=== PATIENT | male | born 1955 | race Caucasian/White ===

== ENCOUNTER 2020-07-28 08:46 | Emergency (ER) | payer OTHER ==
[2020-07-28] MEDS ORDERED: Sodium Chloride 0.9% 10 ML Syringe FLUSH PRN (09:23)
--- NOTE | 2020-07-28 11:15 | EDM.PDOC ---
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 He is a [place] patient, was diagnosed with COVID 5 days ago. He is 02 dependent, and usually his sat run mid 90's on 2-3 Lit/NC, but over the last 2 days he reports his sat has been in low 90's to mid 80's sometimes. He didn't seek any help over the weekend -- but he called the [place] hospital today and was told to come to the ER. Reports chills for 2 days. No CP or palpitation.. He sees a physiotherapy practice manager in [facility]. On daily prednisone 10mg PO per patient's reports Reports that his SOB is so severe that he cannot move from bed to the bathroom without running out of breath - Related Data Allergies Allergy/AdvReac Type Severity Reaction Status Date / Time hydrocodone AdvReac Stomach Verified 05/06/16 12:17 Upset Home Meds: Home Meds Aspirin [Children's Aspirin] 81 mg PO DAILY 05/27/13 [History] Metoprolol Succinate 50 mg PO DAILY 05/27/13 [History] Rosuvastatin Calcium [Crestor] 10 mg PO ASDIRECTED 05/27/13 [History] hydroCHLOROthiazide [Hydrochlorothiazide] 12.5 mg PO DAILY 05/27/13 [History] Lisinopril 10 mg PO DAILY 01/15/16 [History] Past Medical History HEENT History: Reports: Impaired Vision Cardiovascular History: Reports: Hypertension, Pulmonary Hypertension, SOB on Exertion Respiratory History: Reports: Interstitial Lung Disease Gastrointestinal History: Reports: Colon Polyp Musculoskeletal History: Reports: Other (See Below) Other Musculoskeletal History: broke knee 2014, cut tendons on Left hand Hematologic History: Reports: Blood Transfusion(s) - Past Surgical History Cardiovascular Surgical History: Reports: AAA Repair Social & Family History - Caffeine Use Caffeine Use: Reports: Coffee ED ROS GENERAL - Review of Systems Review Of Systems: See Below Constitutional: Reports: Malaise, Fatigue Respiratory: Reports: Shortness of Breath Cardiovascular: Reports: Dyspnea on Exertion GI/Abdominal: Reports: No Symptoms Musculoskeletal: Reports: No Symptoms Skin: Reports: Cyanosis Neurological: Reports: No Symptoms ED EXAM, GENERAL - Physical Exam Exam: See Below Exam Limited By: Respiratory Distress General Appearance: Alert, WD/WN, Mild Distress Eye Exam: Bilateral Eye: EOMI, PERRL Respiratory/Chest: Respiratory Distress, Decreased Breath Sounds, Crackles ( b/l diffuse) Cardiovascular: Normal Peripheral Pulses, Regular Rate, Rhythm Neurological: Alert, Oriented, No Motor/Sensory Deficits Skin Exam: Dry, Cyanosis #1 Interpretation EKG Date: 07/28/20 Rhythm: NSR [place]: Normal P-Wave: Present QRS: Normal ST-T: Normal QT: Normal Course - Vital Signs Last Recorded V/S: Last Vital Signs Temp 36.4 C 07/28/20 10:50 Pulse 61 07/28/20 10:50 Resp 24 H 07/28/20 10:50 BP 112/92 H 07/28/20 10:50 Pulse Ox 84 L 07/28/20 10:50 - Orders/Labs/Meds Orders: Active Orders 24 hr Category Date Time Status EKG Documentation Completion [RC] ASDIRECTED Care 07/28/20 09:23 Active RT Aerosol Therapy [RC] ASDIRECTED Care 07/28/20 13:15 Active RT Aerosol Therapy [RC] ASDIRECTED Care 07/28/20 13:27 Active RT Aerosol Therapy [RC] ASDIRECTED Care 07/28/20 13:28 Active CULTURE BLOOD [BC] Routine Lab 07/28/20 12:00 Received CULTURE BLOOD [BC] Stat Lab 07/28/20 11:28 Received Albuterol [Proventil Neb Soln] Med 07/28/20 13:32 Active 2.5 mg INH Q2H PRN Heparin Sodium/D5W [Heparin 25,000 Units in D5W 500 ML] Med 07/28/20 12:00 Active 25,000 units in 500 ml IV TITRATE Sodium Chloride 0.9% [Normal Saline] 1,000 ml Med 07/28/20 12:00 Active IV ASDIRECTED Sodium Chloride 0.9% [Saline Flush] Med 07/28/20 09:23 Active 10 ml FLUSH ASDIRECTED PRN Saline Lock Insert [OM.PC] Routine Oth 07/28/20 09:23 Ordered Medication Orders Albuterol (Albuterol 0.083% 2.5 Mg/3 Ml Neb Soln) 2.5 mg INH Q2H PRN PRN Reason: Shortness of Breath Last Admin: 07/28/20 11:55 Dose: 2.5 mg Documented by: KRIS Sodium Chloride (Normal Saline) 1,000 mls @ 999 mls/hr IV ASDIRECTED PATRICK Last Admin: 07/28/20 11:45 Dose: 999 mls/hr Documented by: KRIS Heparin Sodium/Dextrose (Heparin 25,000 Units In D5w 500 Ml) 25,000 units in 500 mls @ 23.732 mls/hr IV TITRATE PATRICK; Protocol Last Admin: 07/28/20 13:00 Dose: 12 units/kg/hr, 23.732 mls/hr Documented by: KRIS Cosigned by: SUSIE Sodium Chloride (Sodium Chloride 0.9% 10 Ml Syringe) 10 ml FLUSH ASDIRECTED PRN PRN Reason: Keep Vein Open Last Admin: 07/28/20 11:00 Dose: 10 ml Documented by: KRIS Labs: Laboratory Tests 07/28/20 07/28/20 07/28/20 Range/Units 10:30 10:30 11:03 WBC (4.0-11.0) K/uL RBC (4.50-6.50) M/uL Hgb (13.0-18.0) g/dL Hct (40.0-54.0) % MCV (76-96) fL MCH (27.0-32.0) pg MCHC (31.0-35.0) g/dL RDW (11.0-16.0) % Plt Count (150-400) K/uL MPV (6.0-10.0) fL Neut % (Auto) (45.0-70.0) % Lymph % (Auto) (20.0-40.0) % [place] % (Auto) (3.0-10.0) % Eos % (Auto) (1.0-5.0) % Baso % (Auto) (0.0-0.5) % Neut # (Auto) (2.00-7.50) K/uL Lymph # (Auto) (1.50-4.00) K/uL [place] # (Auto) (0.20-0.80) K/uL Eos # (Auto) (0.04-0.40) K/uL Baso # (Auto) (0.02-0.10) K/uL ESR (0-20) mm/hr D-Dimer, Quantitative 2590 H (0-400) ng/mL ABG pH (7.35-7.45) ABG pCO2 (35-45) mmHg ABG pO2 (80-105) mmHg ABG HCO3 (22-26) mmol/L ABG O2 Saturation (95-98) % ABG Base Excess (-2-2) O2 Delivery Device Sodium 133 L (136-145) mmol/L Potassium 5.6 H D (3.5-5.1) mmol/L Chloride 97 L (98-107) mmol/L Carbon Dioxide 20.4 L D (21.0-32.0) mmol/L Anion Gap 21.2 H (5.0-15.0) mmol/L BUN 88 H* D (8-26) mg/dL Creatinine 3.72 H* D (0.70-1.30) mg/dL Est Cr Clr Drug Dosing TNP Estimated GFR (MDRD) 16 L (>60) MLS/MIN BUN/Creatinine Ratio 23.7 (6-25) Glucose 120 H (74-100) mg/dL Lactic Acid (0.4-2.0) mmol/L Calcium 8.3 L (8.5-10.1) mg/dL Total Bilirubin 0.5 (0.0-1.0) mg/dL AST 40 H (15-37) U/L ALT 20 (12-78) U/L Alkaline Phosphatase 49 (46-116) U/L Troponin I 0.030 (0.000-0.060) ng/mL C-Reactive Protein 19.1 H (0.0-3.0) mg/L B-Natriuretic Peptide 78 D (0-125) pg/mL Total Protein 7.1 (6.4-8.2) g/dL Albumin 3.1 L (3.4-5.0) g/dL Globulin 4.0 (2.2-4.2) g/dL Albumin/Globulin Ratio 0.8 (0.8-2.0) 07/28/20 07/28/20 07/28/20 Range/Units 11:10 11:43 12:00 WBC 7.3 D (4.0-11.0) K/uL RBC 5.15 (4.50-6.50) M/uL Hgb 15.8 (13.0-18.0) g/dL Hct 47.7 (40.0-54.0) % MCV 93 (76-96) fL MCH 30.7 (27.0-32.0) pg MCHC 33.1 (31.0-35.0) g/dL RDW 15.6 (11.0-16.0) % Plt Count 116 L D (150-400) K/uL MPV 13.1 H (6.0-10.0) fL Neut % (Auto) 84.0 H (45.0-70.0) % Lymph % (Auto) 5.8 L (20.0-40.0) % [place] % (Auto) 10.1 H (3.0-10.0) % Eos % (Auto) 0.0 L (1.0-5.0) % Baso % (Auto) 0.1 (0.0-0.5) % Neut # (Auto) 6.13 (2.00-7.50) K/uL Lymph # (Auto) 0.42 L (1.50-4.00) K/uL [place] # (Auto) 0.74 (0.20-0.80) K/uL Eos # (Auto) 0.00 L (0.04-0.40) K/uL Baso # (Auto) 0.01 L (0.02-0.10) K/uL ESR 8 (0-20) mm/hr D-Dimer, Quantitative (0-400) ng/mL ABG pH 7.37 (7.35-7.45) ABG pCO2 30.3 L (35-45) mmHg ABG pO2 53.9 L* (80-105) mmHg ABG HCO3 17.5 L (22-26) mmol/L ABG O2 Saturation 87.2 L (95-98) % ABG Base Excess -7.8 L (-2-2) O2 Delivery Device Non rebr mask Sodium (136-145) mmol/L Potassium (3.5-5.1) mmol/L Chloride (98-107) mmol/L Carbon Dioxide (21.0-32.0) mmol/L Anion Gap (5.0-15.0) mmol/L BUN (8-26) mg/dL Creatinine (0.70-1.30) mg/dL Est Cr Clr Drug Dosing Estimated GFR (MDRD) (>60) MLS/MIN BUN/Creatinine Ratio (6-25) Glucose (74-100) mg/dL Lactic Acid (0.4-2.0) mmol/L Calcium (8.5-10.1) mg/dL Total Bilirubin (0.0-1.0) mg/dL AST (15-37) U/L ALT (12-78) U/L Alkaline Phosphatase (46-116) U/L Troponin I (0.000-0.060) ng/mL C-Reactive Protein (0.0-3.0) mg/L B-Natriuretic Peptide (0-125) pg/mL Total Protein (6.4-8.2) g/dL Albumin (3.4-5.0) g/dL Globulin (2.2-4.2) g/dL Albumin/Globulin Ratio (0.8-2.0) 07/28/20 Range/Units 12:00 WBC (4.0-11.0) K/uL RBC (4.50-6.50) M/uL Hgb (13.0-18.0) g/dL Hct (40.0-54.0) % MCV (76-96) fL MCH (27.0-32.0) pg MCHC (31.0-35.0) g/dL RDW (11.0-16.0) % Plt Count (150-400) K/uL MPV (6.0-10.0) fL Neut % (Auto) (45.0-70.0) % Lymph % (Auto) (20.0-40.0) % [place] % (Auto) (3.0-10.0) % Eos % (Auto) (1.0-5.0) % Baso % (Auto) (0.0-0.5) % Neut # (Auto) (2.00-7.50) K/uL Lymph # (Auto) (1.50-4.00) K/uL [place] # (Auto) (0.20-0.80) K/uL Eos # (Auto) (0.04-0.40) K/uL Baso # (Auto) (0.02-0.10) K/uL ESR (0-20) mm/hr D-Dimer, Quantitative (0-400) ng/mL ABG pH (7.35-7.45) ABG pCO2 (35-45) mmHg ABG pO2 (80-105) mmHg ABG HCO3 (22-26) mmol/L ABG O2 Saturation (95-98) % ABG Base Excess (-2-2) O2 Delivery Device Sodium (136-145) mmol/L Potassium (3.5-5.1) mmol/L Chloride (98-107) mmol/L Carbon Dioxide (21.0-32.0) mmol/L Anion Gap (5.0-15.0) mmol/L BUN (8-26) mg/dL Creatinine (0.70-1.30) mg/dL Est Cr Clr Drug Dosing Estimated GFR (MDRD) (>60) MLS/MIN BUN/Creatinine Ratio (6-25) Glucose (74-100) mg/dL Lactic Acid 2.5 H (0.4-2.0) mmol/L Calcium (8.5-10.1) mg/dL Total Bilirubin (0.0-1.0) mg/dL AST (15-37) U/L ALT (12-78) U/L Alkaline Phosphatase (46-116) U/L Troponin I (0.000-0.060) ng/mL C-Reactive Protein (0.0-3.0) mg/L B-Natriuretic Peptide (0-125) pg/mL Total Protein (6.4-8.2) g/dL Albumin (3.4-5.0) g/dL Globulin (2.2-4.2) g/dL Albumin/Globulin Ratio (0.8-2.0) Meds: Medications Generic Name Dose Route Start Last Admin Trade Name Freq PRN Reason Stop Dose Admin Albuterol 2.5 mg 07/28/20 13:32 07/28/20 11:55 Albuterol 0.083% 2.5 Mg/3 Ml Neb Soln INH 2.5 mg Q2H PRN Administration Shortness of Breath Sodium Chloride 1,000 mls @ 999 mls/hr 04/06/21 12:00 07/28/20 11:45 Normal Saline IV 999 mls/hr ASDIRECTED PATRICK Administration Heparin Sodium/Dextrose 25,000 units in 500 mls @ 23.732 mls/hr 07/28/20 12:00 07/28/20 13:00 Heparin 25,000 Units In D5w 500 Ml IV 12 units/kg/hr TITRATE PATRICK 23.732 mls/hr Administration Protocol 12 UNITS/KG/HR Sodium Chloride 10 ml 07/28/20 09:23 07/28/20 11:00 Sodium Chloride 0.9% 10 Ml Syringe FLUSH 10 ml ASDIRECTED PRN Administration Keep Vein Open Discontinued Medications Generic Name Dose Route Start Last Admin Trade Name Freq PRN Reason Stop Dose Admin Albuterol 2.5 mg 07/28/20 13:14 07/28/20 13:23 Albuterol 0.083% 2.5 Mg/3 Ml Neb Soln NEB 07/28/20 13:15 2.5 mg ONETIME ONE Administration Albuterol 0.63 mg 07/28/20 13:26 07/28/20 11:55 Albuterol 0.021% 0.63 Mg/3 Ml Neb Soln NEB 0.63 mg Q2H PRN Administration Shortness of Breath Albuterol/Ipratropium 3 ml 07/28/20 12:00 07/28/20 13:35 Albuterol/Ipratropium 3.0-0.5 Mg/3 Ml Neb Soln NEB 07/28/20 12:01 3 ml ONETIME ONE Administration Heparin Sodium (Porcine) 4,000 units 07/28/20 13:48 07/28/20 13:49 Heparin Sodium 5,000 Units/0.5 Ml Syringe IVPUSH 07/28/20 13:49 4,000 units .BOLUS ONE Administration Vancomycin HCl 500 mg/ Sodium 100 mls @ 100 mls/hr 07/28/20 12:09 07/28/20 12:43 Chloride IV 07/28/20 12:10 100 mls/hr ONETIME ONE Administration Levofloxacin/Dextrose 500 mg/ 200 mls @ 100 mls/hr 07/28/20 12:10 07/28/20 13:56 Levofloxacin/Dextrose IV 07/28/20 14:09 100 mls/hr ONETIME ONE Administration Sodium Chloride 1,000 mls @ 999 mls/hr 07/28/20 13:14 07/28/20 13:00 Normal Saline IV 07/28/20 14:14 999 mls/hr .BOLUS ONE Administration Methylprednisolone Sodium Succinate 40 mg 07/28/20 11:02 07/28/20 12:12 Methylprednisolone Sodium Succinate 40 Mg/1 Ml Sdv IVPUSH 07/28/20 11:03 40 mg ONETIME ONE Administration Methylprednisolone Sodium Succinate Confirm 07/28/20 13:38 07/28/20 14:00 Methylprednisolone Sodium Succinate 40 Mg/1 Ml Sdv Administered 07/28/20 13:39 Not Given Dose 40 mg .ROUTE .[facility] - Re-Assessments/Exams Free Text/Narrative Re-Assessment/Exam: upon arrival to the ER O2 was in low 80'S, BP 72/55, HR 75 and RR 20, Temp 37.2 EKG - NSR, no arrhythmias or ischemic changes CXR - b/l ground glass opacities. labs showed worsening of kidney function and elevated ddimer unable to perform CT with contrast to rule out PE due to elevation in Cr and BUN - heparin was started with a bolus then a drip Respiratory status has improved after multiple nebs treatment with albuterol and DuoNeb. On 8 lit by NR. Initial hypotension - improved with Hydration 2 lit NS were given. Also concerns for adrenal insufficiency due to chronic steroids use - IV solumedrol was given. Patient reports significant improvement in his symptoms - able to breath better and more energetic. vitals still show O2 92-93% on 8 lit NC,, also BP 85/68. Alert, oriented, talking in full sentences and using his phone. Blood Cx x2 IV levaquin and Vancomycin were started as well. Called [facility] - who reported that given the complexity and acuity of the p atient's condition - they recommended to transfer the patient to another higher level of care facility. Spoke with [facility] - Didn't accept the patient. Called [facility] - who agreed to accept the patient to their ICU. Patient to be transported by air ambulance due the critical nature of his condition and long distance Departure - Departure Time of Disposition: 15:41 Disposition: DC/Tfer to Acute Hospital 02 Condition: Fair Clinical Impression: Hypoxemia, Pneumonia due to COVID-19 virus, Elevated d-dimer, Acute kidney injury due to COVID-19, Sepsis associated hypotension, Dehydration, Acute respiratory failure due to COVID-19 Pneumonia Qualifiers: Pneumonia type: due to unspecified organism Laterality: bilateral Lung location: unspecified part of lung Qualified Code(s): J18.9 - Pneumonia, unspecified organism Hypotension Qualifiers: Hypotension type: unspecified hypotension type Qualified Code(s): I95.9 - Hypotension, unspecified - Discharge Information *PRESCRIPTION DRUG MONITORING PROGRAM REVIEWED*: Not Applicable *COPY OF PRESCRIPTION DRUG MONITORING REPORT IN PATIENT MICHAEL: Not Applicable Referrals: PCP,None [Primary Care Provider] - Sepsis Event Note (ED) - Focused Exam Vital Signs: Vital Signs Temp Pulse Resp BP Pulse Ox 07/28/20 10:50 36.4 C 61 24 H 112/92 H 84 L - Problem List & Annotations (1) Acute kidney injury due to COVID-19 SNOMED Code(s): 320281758 Code(s): U07.1 - COVID-19; N17.9 - ACUTE KIDNEY FAILURE, UNSPECIFIED Status: Acute Priority: High Current Visit: Yes (2) Acute respiratory failure due to COVID-19 SNOMED Code(s): 117020967 Code(s): U07.1 - COVID-19; J96.00 - ACUTE RESPIRATORY FAILURE, UNSP W HYPOXIA OR HYPERCAPNIA Status: Acute Priority: High Current Visit: Yes (3) Dehydration SNOMED Code(s): 48713480 Code(s): E86.0 - DEHYDRATION Status: Acute Priority: Medium Current Visit: Yes (4) Elevated d-dimer SNOMED Code(s): 801278841 Code(s): R79.89 - OTHER SPECIFIED ABNORMAL FINDINGS OF BLOOD CHEMISTRY Status: Acute Priority: Medium Current Visit: Yes (5) Hypotension SNOMED Code(s): 75643916 Code(s): I95.9 - HYPOTENSION, UNSPECIFIED Status: Acute Priority: High Current Visit: Yes Qualifiers: Hypotension type: unspecified hypotension type Qualified Code(s): I95.9 - Hypotension, unspecified (6) Hypoxemia SNOMED Code(s): 179885294 Code(s): R09.02 - HYPOXEMIA Status: Acute Priority: High Current Visit: Yes (7) Pneumonia SNOMED Code(s): 261895572 Code(s): J18.9 - PNEUMONIA, UNSPECIFIED ORGANISM Status: Acute Priority: High Current Visit: Yes Qualifiers: Pneumonia type: due to unspecified organism Laterality: bilateral Lung location: unspecified part of lung Qualified Code(s): J18.9 - Pneumonia, unspecified organism (8) Pneumonia due to COVID-19 virus SNOMED Code(s): 622414730875420759 Code(s): U07.1 - COVID-19; J12.82 - PNEUMONIA DUE TO CORONAVIRUS DISEASE 2019 Status: Acute Priority: High Current Visit: Yes (9) Sepsis associated hypotension SNOMED Code(s): 04578249 Code(s): A41.9 - SEPSIS, UNSPECIFIED ORGANISM; I95.9 - HYPOTENSION, UNSPECIFIED Status: Acute Priority: High Current Visit: Yes - Problem List Review Problem List Initiated/Reviewed/Updated: Yes - My Orders Last 24 Hours: My Active Orders 07/28/20 09:23 EKG Documentation Completion [RC] ASDIRECTED Sodium Chloride 0.9% [Saline Flush] 10 ml FLUSH ASDIRECTED PRN Saline Lock Insert [OM.PC] Routine 07/28/20 11:28 CULTURE BLOOD [BC] Stat 07/28/20 12:00 CULTURE BLOOD [BC] Routine Heparin Sodium/D5W [Heparin 25,000 Units in D5W 500 ML] 25,000 units in 500 ml IV TITRATE Sodium Chloride 0.9% [Normal Saline] 1,000 ml IV ASDIRECTED 07/28/20 13:15 RT Aerosol Therapy [RC] ASDIRECTED 07/28/20 13:27 RT Aerosol Therapy [RC] ASDIRECTED 07/28/20 13:28 RT Aerosol Therapy [RC] ASDIRECTED 07/28/20 13:32 Albuterol [Proventil Neb Soln] 2.5 mg INH Q2H PRN - Assessment/Plan Last 24 Hours: My Active Orders 07/28/20 09:23 EKG Documentation Completion [RC] ASDIRECTED Sodium Chloride 0.9% [Saline Flush] 10 ml FLUSH ASDIRECTED PRN Saline Lock Insert [OM.PC] Routine 07/28/20 11:28 CULTURE BLOOD [BC] Stat 07/28/20 12:00 CULTURE BLOOD [BC] Routine Heparin Sodium/D5W [Heparin 25,000 Units in D5W 500 ML] 25,000 units in 500 ml IV TITRATE Sodium Chloride 0.9% [Normal Saline] 1,000 ml IV ASDIRECTED 07/28/20 13:15 RT Aerosol Therapy [RC] ASDIRECTED 07/28/20 13:27 RT Aerosol Therapy [RC] ASDIRECTED 07/28/20 13:28 RT Aerosol Therapy [RC] ASDIRECTED 07/28/20 13:32 Albuterol [Proventil Neb Soln] 2.5 mg INH Q2H PRN Plan: stabilization with fluids, O2, steroids Abx Vanco/levo for concerns of pneumonia and sepsis. Also heparin bolus and drip until PE is ruled out Hypoxia - O2 supplementation and multiple nebs as needed
[2020-07-28] MEDS: methylPREDNISolone Sodium Succinate 40 MG/1 ML SDV IVPUSH ONE ×2 (11:30→12:12)
[2020-07-28] MEDS: Albuterol 0.083% 2.5 MG/3 ML Neb Soln INH PRN ×2 (11:55→13:35)
[2020-07-28] MEDS ORDERED: Sodium Chloride 0.9% 1,000 ML IV SCH ×2 (12:00→15:00)
[2020-07-28] MEDS ORDERED: Heparin Sodium/D5W 25,000 UNITS/500 ML BAG IV SCH (12:00)
[2020-07-28] MEDS: Albuterol/Ipratropium 3.0-0.5 MG/3 ML Neb Soln NEB ONE ×2 (12:00→13:35)
--- NOTE | 2020-07-28 12:08 | CR ---
DATE OF SERVICE: 07/28/2020 CLINICAL DATA: SOB Portable chest: Comparison is made to a prior exam dated 31 May 2018. The heart size is normal. There are poorly defined ground-glass opacities scattered throughout both lungs . Viral pneumonia is suspected. No pneumothorax. No pleural effusions. Chronic eventration of the left hemidiaphragm. MTDD
[2020-07-28] MEDS ORDERED: Levofloxacin/Dextrose 5%-Water 500 MG in Levofloxacin/Dextrose 5%-Water 100 ML IV ONE (12:10)
[2020-07-28] MEDS: Heparin Sodium 5,000 UNITS/0.5 ML Syringe IVPUSH ONE ×2 (12:55→13:49)
[2020-07-28] MEDS ORDERED: Sodium Chloride 0.9% 1,000 ML IV ONE (13:14)
[2020-07-28] MEDS ORDERED: Albuterol 0.083% 2.5 MG/3 ML Neb Soln NEB ONE (13:14)
[2020-07-28] MEDS ORDERED: Albuterol 0.021% 0.63 MG/3 ML Neb Soln NEB PRN (13:26)
[2020-07-28] MEDS ORDERED: methylPREDNISolone Sodium Succinate 40 MG/1 ML SDV ONE (13:38)
[2020-07-28 15:11] VITALS: PULSE 83
[2020-07-28 16:18] VITALS: BP 83/39
== END 2020-07-28 17:25 ==
LOC: LB.ED 08:46
DX: U07.1 COVID-19 (principal); J12.81 Pneumonia due to SARS-associated coronavirus; A41.9 Sepsis, unspecified organism; R65.20 Severe sepsis without septic shock; N17.9 Acute kidney failure, unspecified; J96.01 Acute respiratory failure with hypoxia; I95.9 Hypotension, unspecified; R79.1 Abnormal coagulation profile; I10 Essential (primary) hypertension; E86.0 Dehydration; Z88.5 Allergy status to narcotic agent; Z79.82 Long term (current) use of aspirin; Z79.899 Other long term (current) drug therapy
CPT/HCPCS: 36415; 36600; 51702; 71045; 80053; 82803; 83605; 83880; 84484; 85025; 85379; 85651; 86140; 87040; 93005; 96365; 96366; 96367; 96375; 99283; 99285-25; J1644; J1644-GY; J1956; J2920; J3370; J7030; J7620-GY